=== PATIENT | female | born 1995 | race Caucasian/White ===

== ENCOUNTER 2024-02-10 10:02 | Emergency (ER) | payer OTHER ==
[~2024-02-10] VITALS: Ht 165.1 cm; Wt 75.0 kg
[2024-02-10 10:09] VITALS: TEMP 97.8
[2024-02-10] MEDS ORDERED: Ketorolac 30 MG/ML VIAL IM ONE (10:45)
[2024-02-10] MEDS ORDERED: VOLTAREN 75 DR75 MG PO (11:38)
[2024-02-10 11:47] VITALS: BP 110/77; PULSE 73
== END 2024-02-10 11:48 | disposition home or self-care (01) ==
LOC: COL.ER 10:02
DX: M54.50 Low back pain, unspecified (principal)
CPT/HCPCS: J1885